=== PATIENT | female | born 1985 | race Caucasian/White ===

== ENCOUNTER 2016-10-07 16:54 | Emergency (ER) | payer MEDICAID ==
[2016-10-07 17:02] VITALS: BP 113/61; PULSE 75; RESP 16; TEMP 97.7; O2SAT 95
--- NOTE | 2016-10-07 17:14 | EDPHY ---
H & P Stated Complaint: L HEEL GOING NUMB X 4 DAYS Time Seen by Provider: 10/07/16 17:03 HPI/ROS: CHIEF COMPLAINT: Left heel paresthesias HISTORY OF PRESENT ILLNESS: Patient is a 31-year-old female who comes to the emergency department complaining of paresthesias in the lateral aspect of her left heel since she began a new job and his down her feet all day wearing tight boots. She has not had any injuries or falls. She has not had any signs of infection. She does not have diabetes. She does not have foot pain leg pain or back pain. No weakness. She is able to ambulate without difficulty. When she were softer shoes or boots the symptoms improve. REVIEW OF SYSTEMS: Constitutional: denies: chills, fever, recent illness, recent injury EENTM: denies: blurred vision, double vision, nose congestion Respiratory: denies: cough, shortness of breath Cardiac: denies: chest pain, irregular heart rate, lightheadedness, palpitations Gastrointestinal/Abdominal: denies: abdominal pain, diarrhea, nausea, vomiting, blood streaked stools Genitourinary: denies: dysuria, frequency, hematuria, pain Musculoskeletal: See HPI Skin: denies: lesions, rash, jaundice, bruising Neurological: denies: headache, numbness, paresthesia, tingling, dizziness, weakness Hematologic/Lymphatic: denies: blood clots, easy bleeding, easy bruising Immunologic/allergic: denies: HIV/AIDS, transplant EXAM: GENERAL: Well-appearing, well-nourished and in no acute distress. HEAD: Atraumatic, normocephalic. EYES: Pupils equal round and reactive to light, extraocular movements intact, sclera anicteric, conjunctiva are normal. ENT: TMs normal, nares patent, oropharynx clear without exudates. Moist mucous membranes. NECK: Normal range of motion, supple without lymphadenopathy or JVD. LUNGS: Breath sounds clear to auscultation bilaterally and equal. No wheezes rales or rhonchi. HEART: Regular rate and rhythm without murmurs, rubs or gallops. ABDOMEN: Soft, nontender, normoactive bowel sounds. No guarding, no rebound. No masses appreciated. BACK: No CVA tenderness, no spinal tenderness, step-offs or deformities EXTREMITIES: Normal range of motion, no pitting or edema. No clubbing or cyanosis. Mild paresthesias to left lateral heel, no objective findings. Normal sensation to light touch and pinprick. NEUROLOGICAL: Cranial nerves II through XII grossly intact. Normal speech, normal gait. 5/5 strength, normal movement in all extremities, normal sensation PSYCH: Normal mood, normal affect. SKIN: Warm, dry, normal turgor, no visible rashes or lesions. Source: Patient Exam Limitations: No limitations - Personal History LMP (Females 10-55): Extended Cycle BCP/Inj Current Tetanus/Diphtheria Vaccine: Yes - Medical/Surgical History Hx Asthma: No Hx Chronic Respiratory Disease: No Hx Diabetes: No Hx Cardiac Disease: No Hx Renal Disease: No Hx Cirrhosis: No Hx Alcoholism: No Hx HIV/AIDS: No Hx Splenectomy or Spleen Trauma: No Other PMH: LEFT EAR SURGERY, APPENDECTOMY, C-SECTIONS. Psychiatric illness-- PTSD, bipolar, anxiety - Family History Significant Family History: No pertinent family hx - Social History Smoking Status: Current every day smoker Alcohol Use: Sober Drug Use: None Constitutional: Initial Vital Signs Temperature (C) 36.5 C 10/07/16 16:59 Heart Rate 75 10/07/16 16:59 Respiratory Rate 16 10/07/16 16:59 Blood Pressure 113/61 10/07/16 16:59 O2 Sat (%) 95 10/07/16 16:59 O2 Delivery Mode Room Air Allergies/Adverse Reactions: cefazolin sodium [From Anc] Allergy (Verified 10/07/16 16:57) peanut Allergy (Verified 10/07/16 16:57) Home Medications: Medication Instructions Recorded Hydroxyzine Pamoate [Vistaril] 50 mg PO TID #30 capsule 08/10/16 busPIRone [Buspar (*)] 15 mg PO HS #10 tab 08/10/16 risperiDONE [RisperDAL] 1 mg PO DAILY #10 tab 08/10/16 Medical Decision Making ED Course/Re-evaluation: Patient has paresthesias that seem to be associated with tight boots and long hours on her feet. We discussed wearing more comfortable shoes and I will have her follow up with Orthopedics. There does not seem to be any signs consistent with back injury or spinal cord abnormality. This appears to more of a peripheral nerve compression. No visible infections or wounds or signs of fracture. Differential Diagnosis: Partial list of the Differential diagnosis considered include but were not limited to; peripheral neuropathy, cellulitis, plantar fasciitis and although unlikely based on the history and physical exam, I also considered multiple sclerosis, cauda equina. I discussed these differential diagnoses and the plan with the patient as well as the usual and expected course. The patient understands that the diagnosis is provisional and that in medicine we are not always correct and that further workup is often warranted. Usual and customary warnings were given. All of the patient's questions were answered. The patient was instructed to return to the emergency department should the symptoms at all worsen or return, otherwise to followup with the physician as we discussed. Departure - Departure Disposition: Home, Routine, Self-Care Clinical Impression: Paresthesia Condition: Fair Instructions: Paresthesia (ED) Referrals: NONE *PRIMARY CARE P,. [Primary Care Provider] - As per Instructions Luigi Womack MD [Doctor of Podiatric Medicine] - As per Instructions Stand Alone Forms: Work Excuse
== END 2016-10-07 17:24 | disposition home or self-care (01) ==
DX: R20.2 Paresthesia of skin (principal); F17.200 Nicotine dependence, unspecified, uncomplicated

== ENCOUNTER 2016-10-19 16:53 | Emergency (ER) | payer MEDICAID ==
[2016-10-19 17:23] VITALS: TEMP 97.9
[2016-10-19 18:07] LABS: COLOR AMBER; LEUKOCYTE ESTERASE,URINE NEGATIVE (NEGATIVE); NITRITE,URINE POSITIVE (NEGATIVE)
[2016-10-19 18:13] LABS: BACTERIA 2+ /hpf (NONE SEEN); MUCUS 3+ /lpf (NONE-1+); RBC,URINE 25-50 /hpf (0-3)
--- NOTE | 2016-10-19 19:20 | EDPHY ---
H & P Stated Complaint: Possible UTI HPI/ROS: HPI CHIEF COMPLAINT: Dysuria, nausea HISTORY OF PRESENT ILLNESS: this patient very pleasant 31-year-old female significant past medical history for PTSD, bipolar, borderline personality disorder, presents to the emergency room with 5 days of urinary frequency, dysuria, with nausea with episodes of nonbilious nonbloody vomiting. She also tells me that she had some bilateral flank pain. She is concerned she may have a urinary tract infection or kidney infection. She denies fever. She denies chest pain or shortness of breath. Past Medical History: PTSD, bipolar, borderline personality disorder Past Surgical History: denies significant surgical history except for appendectomy Social History: denies daily use of alcohol or drugs does endorse tobacco Family History: Noncontributory ROS REVIEW OF SYSTEMS: A comprehensive 10 point review of systems is otherwise negative aside from elements mentioned in the history of present illness. Exam Constitutional appears well, nontoxic, triage nursing summary reviewed, vital signs reviewed, awake/alert. Eyes normal conjunctivae and sclera, EOMI, PERRLA. HENT normal inspection, atraumatic, moist mucus membranes, no epistaxis, neck supple/ no meningismus, no raccoon eyes. Respiratory clear to auscultation bilaterally, normal breath sounds, no respiratory distress, no wheezing. Cardiovascular rate normal, regular rhythm, no murmur, no edema, distal pulses normal. Gastrointestinal soft, non-tender, no rebound, no guarding, normal bowel sounds, no distension, no pulsatile mass. Genitourinary no CVA tenderness. Musculoskeletal no midline vertebral tenderness, full range of motion, no calf swelling, no tenderness of extremities, no meningismus, good pulses, neurovascularly intact. Skin pink, warm, & dry, no rash, skin atraumatic. Neurologic awake, alert and oriented x 3, AAOx3, moves all 4 extremities equally, motor intact, sensory intact, CN II-XII intact, normal cerebellar, normal vision, normal speech. Psychiatric normal mood/affect. Heme/Lymph/Immune no lymphadenopathy. Differential Diagnosis: Includes but is not limited to in a particular order, UTI, cystitis, pyelonephritis, dehydration, electrolyte abnormality, doubt sepsis Medical Decision Making: this patient had an IV established, patient be medicated with IV fluids, nausea medicine and pain medicine. We will check a urinalysis test and blood work. Re-evaluation: 2009: re-evaluation at this time this patient is resting comfortably no acute distress no vomiting. Abdomen remained soft. Urinalysis reviewed UTI. She received Macrobid here in the emergency room. She is allergic to cephalosporins. I prescribed her [place] for pain control Zofran for nausea, peridium for spasms and Macrobid. She does understand return emergency room she develops worsening symptoms includes fever, vomiting, abdominal pain. Source: Patient - Personal History LMP (Females 10-55): Over 28 Days Ago Current Tetanus Diphtheria and Acellular Pertussis (TDAP): Yes - Medical/Surgical History Hx Asthma: No Hx Chronic Respiratory Disease: No Hx Diabetes: No Hx Cardiac Disease: No Hx Renal Disease: No Hx Cirrhosis: No Hx Alcoholism: No Hx HIV/AIDS: No Hx Splenectomy or Spleen Trauma: No Other PMH: LEFT EAR SURGERY, APPENDECTOMY, C-SECTIONS. Psychiatric illness-- PTSD, bipolar, anxiety - Social History Smoking Status: Current every day smoker Constitutional: Initial Vital Signs Temperature (C) 36.6 C 10/19/16 17:21 Heart Rate 73 10/19/16 17:21 Respiratory Rate 18 10/19/16 17:21 Blood Pressure 103/70 10/19/16 17:21 O2 Sat (%) 96 10/19/16 17:21 O2 Delivery Mode Room Air Allergies/Adverse Reactions: peanut Allergy (Severe, Verified 10/19/16 17:20) Anaphylaxis cefazolin sodium [From Ancef] Allergy (Intermediate, Verified 10/19/16 17:20) Hives Home Medications: Medication Instructions Recorded Hydroxyzine Pamoate [Vistaril] 50 mg PO TID #30 capsule 08/10/16 busPIRone [Buspar (*)] 15 mg PO HS #10 tab 08/10/16 risperiDONE [RisperDAL] 1 mg PO DAILY #10 tab 08/10/16 Hydrocodone/APAP 5/325 [[place] 1 - 2 tab PO Q4H PRN #7 tab 10/19/16 5/325] Nitrofurantoin Monohyd/M-Cryst 100 mg PO BID #14 capsule 10/19/16 [Macrobid 100 mg Capsule] Ondansetron HCl [Zofran] 4 mg PO Q4-6PRN PRN #10 tablet 10/19/16 Phenazopyridine HCl [Pyridium] 200 mg PO TID #15 tab 10/19/16 Prezazone 10/19/16 Medical Decision Making - Data Points Laboratory Results: Laboratory Results 10/19/16 19:29 10/19/16 19:29 10/19/16 10/19/16 19:29 17:20 WBC 8.69 10^3/uL (3.80-9.50) RBC 4.89 10^6/uL (4.18-5.33) Hgb 14.7 g/dL (12.6-16.3) Hct 42.3 % (38.0-47.0) MCV 86.5 fL (81.5-99.8) MCH 30.1 pg (27.9-34.1) MCHC 34.8 g/dL (32.4-36.7) RDW 12.1 % (11.5-15.2) Plt Count 346 10^3/uL (150-400) MPV 9.9 fL (8.7-11.7) Neut % (Auto) 58.5 % (39.3-74.2) Lymph % (Auto) 32.3 % (15.0-45.0) [place] % (Auto) 7.7 % (4.5-13.0) Eos % (Auto) 1.0 % (0.6-7.6) Baso % (Auto) 0.3 % (0.3-1.7) Nucleat RBC Rel Count 0.0 % (0.0-0.2) Absolute Neuts (auto) 5.07 10^3/uL (1.70-6.50) Absolute Lymphs (auto) 2.81 10^3/uL (1.00-3.00) Absolute Monos (auto) 0.67 10^3/uL (0.30-0.80) Absolute Eos (auto) 0.09 10^3/uL (0.03-0.40) Absolute Basos (auto) 0.03 10^3/uL (0.02-0.10) Absolute Nucleated RBC 0.00 10^3/uL (0-0.01) Immature Gran % 0.2 % (0.0-1.1) Immature Gran # 0.02 10^3/uL (0.00-0.10) Sodium 138 mEq/L (134-144) Potassium 4.6 mEq/L (3.5-5.2) Chloride 104 mEq/L (97-110) Carbon Dioxide 23 mEq/l (22-31) Anion Gap 11 mEq/L (8-16) BUN 19 mg/dL (7-23) Creatinine 0.7 mg/dL (0.6-1.0) Estimated GFR > 60 Glucose 85 mg/dL (70-100) Calcium 9.3 mg/dL (8.5-10.4) Total Bilirubin 0.9 mg/dL (0.1-1.4) Conjugated Bilirubin 0.3 mg/dL (0.0-0.5) Unconjugated Bilirubin 0.6 mg/dL (0.0-1.1) AST 27 IU/L (14-46) ALT 33 IU/L (9-52) Alkaline Phosphatase 117 IU/L (38-126) Total Protein 7.6 g/dL (6.3-8.2) Albumin 4.0 g/dL (3.5-5.0) Lipase 38.0 IU/L (23-300) Urine Color LAURY Urine Appearance MODERATELY TURBID Urine pH 5.0 (5.0-7.5) Ur Specific [place] 1.030 (1.002-1.030) Urine Protein 1+ H (NEGATIVE) Urine Ketones 1+ H (NEGATIVE) Urine Blood NEGATIVE (NEGATIVE) Urine Nitrate POSITIVE H (NEGATIVE) Urine Bilirubin NEGATIVE (NEGATIVE) Urine Urobilinogen NEGATIVE EU (0.2-1.0) Ur Leukocyte Esterase NEGATIVE (NEGATIVE) Urine RBC 25-50 H /hpf (0-3) Urine WBC 1-3 /hpf (0-3) Ur Epithelial Cells TRACE /lpf (NONE-1+) Urine Bacteria 2+ H /hpf (NONE SEEN) Urine Mucus 3+ H /lpf (NONE-1+) Ur Culture Indicated? INDICATED H (NI) Urine Glucose NEGATIVE (NEGATIVE) Urine Test NEGATIVE Medications Given: Discontinued Medications Hydromorphone HCl (Dilaudid) 0.5 mg IVP EDNOW ONE Stop: 10/19/16 19:24 Last Admin: 10/19/16 19:40 Dose: 0.5 mg Sodium Chloride (Ns) 2,000 mls @ 0 mls/hr IV ONCE ONE PRN Reason: Wide Open Stop: 10/19/16 19:24 Last Admin: 10/19/16 19:30 Dose: 2,000 mls Nitrofurantoin Macrocrystals (Macrobid) 100 mg PO EDNOW ONE PRN Reason: Protocol Stop: 10/19/16 19:28 Last Admin: 10/19/16 19:40 Dose: 100 mg Ondansetron HCl (Zofran) 4 mg IVP EDNOW ONE Stop: 10/19/16 19:24 Last Admin: 10/19/16 19:38 Dose: 4 mg Departure - Departure Disposition: Home, Routine, Self-Care Clinical Impression: UTI (urinary tract infection) Qualifiers: Urinary tract infection type: acute cystitis Hematuria presence: with hematuria Qualifier Code: (N30.01) Acute cystitis with hematuria Condition: Good Instructions: Urinary Tract Infection in Women (ED) Additional Instructions: 1. Drink lots of fluids stay well-hydrated. 2. return emergency room if develops worsening symptoms questions or concerns includes worsening back pain, vomiting, abdominal pain, fever. 3. Take antibiotic as prescribed. Referrals: NONE *PRIMARY CARE P,. [Primary Care Provider] - As per Instructions Prescriptions: Nitrofurantoin Monohyd/M-Cryst [Macrobid 100 mg Capsule] 100 mg PO BID #14 capsule Hydrocodone/APAP 5/325 [[place] 5/325] 1 - 2 tab PO Q4H PRN #7 tab PRN Reason: Pain, Moderate Phenazopyridine HCl [Pyridium] 200 mg PO TID #15 tab Ondansetron HCl [Zofran] 4 mg PO Q4-6PRN PRN #10 tablet PRN Reason: Nausea/Vomiting, Use 1st
[2016-10-19] MEDS ORDERED: HYDROmorphONE/DILAUDID 1 MG/ML SYR IVP ONE (19:23)
[2016-10-19] MEDS ORDERED: NS 2,000 ML IV ONE (19:23)
[2016-10-19] MEDS ORDERED: ONDANSETRON 4 MG/2 ML VIAL IVP ONE (19:23)
[2016-10-19] MEDS ORDERED: NITROFURANTOIN MACROBID 100 MG CAP PO ONE (19:27)
[2016-10-19 19:37] LABS: % IMMATURE GRANULYOCYTES 0.2 % (0.0-1.1); ABSOLUTE IMMATURE GRANULOCYTES 0.02 10^3/uL (0.00-0.10); ADD DIFF? NO; ADD MORPH? NO; ADD SCAN? NO; ATYPICAL LYMPHOCYTE FLAG 10 (0-99); FRAGMENT RBC FLAG 0 (0-99); HEMATOCRIT 42.3 % (38.0-47.0); HEMOGLOBIN 14.7 g/dL (12.6-16.3); LEFT SHIFT FLG 0 (0-99); LIPEMIA HEMOLYSIS FLAG 90 (0-99); MEAN CELL HEMOGLOBIN 30.1 pg (27.9-34.1); MEAN CELL HEMOGLOBIN CONCENTR. 34.8 g/dL (32.4-36.7); MEAN CELL VOLUME 86.5 fL (81.5-99.8); MEAN PLATELET VOLUME 9.9 fL (8.7-11.7); PLATELET CLUMPS FLAG 0 (0-99); PLATELET COUNT 346 10^3/uL (150-400); RED BLOOD CELL COUNT 4.89 10^6/uL (4.18-5.33); RED CELL DISTRIBUTION WIDTH 12.1 % (11.5-15.2)
[2016-10-19 19:52] LABS: ALANINE AMINOTRANSFERASE 33 IU/L (9-52); ALKALINE PHOSPHATASE 117 IU/L (38-126); ANION GAP 11 mEq/L (8-16); ASPARTATE AMINOTRANSFERASE 27 IU/L (14-46); BILIRUBIN,TOTAL 0.9 mg/dL (0.1-1.4); BILIRUBIN-CONJUGATED 0.3 mg/dL (0.0-0.5); BILIRUBIN-UNCONJUGATED 0.6 mg/dL (0.0-1.1); CALCIUM 9.3 mg/dL (8.5-10.4); CARBON DIOXIDE 23 mEq/l (22-31); CHLORIDE 104 mEq/L (97-110); CREATININE 0.7 mg/dL (0.6-1.0); GLOMERULAR FILTRATION RATE > 60; GLUCOSE 85 mg/dL (70-100); POTASSIUM 4.6 mEq/L (3.5-5.2); SODIUM 138 mEq/L (134-144); TOTAL PROTEIN 7.6 g/dL (6.3-8.2)
[2016-10-19] MEDS ORDERED: PHENAZOPYRIDINE HCL 200 MG TAB ONE (20:47)
[2016-10-19] MEDS ORDERED: HYDROCOD/APAP 5/325 PREPACK#6 BTL TAKEHOME ONE ×2 (20:47→20:49)
[2016-10-19] MEDS ORDERED: PHENAZOPYRIDINE HCL 200 MG TAB PO ONE (20:49)
[2016-10-19 20:52] VITALS: BP 119/79; PULSE 79; RESP 16; O2SAT 94
== END 2016-10-19 20:51 | disposition home or self-care (01) ==
DX: N30.01 Acute cystitis with hematuria (principal); F17.200 Nicotine dependence, unspecified, uncomplicated; B96.89 Other specified bacterial agents as the cause of diseases classified elsewhere; Z91.010 Allergy to peanuts
CPT/HCPCS: 96374; J1170; J2405

== ENCOUNTER 2016-10-26 16:21 | Emergency (ER) | payer MEDICAID ==
--- NOTE | 2016-10-26 16:49 | EDPHY ---
H & P Stated Complaint: UTI? was here last wk for same thing - Personal History LMP (Females 10-55): Irregular Current Tetanus/Diphtheria Vaccine: Unsure Current Tetanus Diphtheria and Acellular Pertussis (TDAP): Unsure - Medical/Surgical History Hx Asthma: No Hx Chronic Respiratory Disease: No Hx Diabetes: No Hx Cardiac Disease: No Hx Renal Disease: No Hx Cirrhosis: No Hx Alcoholism: No Hx HIV/AIDS: No Hx Splenectomy or Spleen Trauma: No Other PMH: LEFT EAR SURGERY, APPENDECTOMY, C-SECTIONS. Psychiatric illness-- PTSD, bipolar, anxiety - Social History Smoking Status: Current every day smoker Time Seen by Provider: 10/26/16 16:47 HPI/ROS: CHIEF COMPLAINT: I still feel sick HISTORY OF PRESENT ILLNESS: 31-year-old female seen emergency department 6 days ago for complaints of urinary tract infection, started on nitrofurantoin at that time as she has cephalosporin allergy, in the ER complaining of new lower abdominal pain, flu-like symptoms, rhinorrhea, concerned that her urinary tract infection is not resolving. She also endorses nausea, subjective fever. Denies : cough, dyspnea, chest pain Back or flank pain, dysuria, hematuria, increased frequency, vomiting, melena, hematochezia, diarrhea, bowel movement abnormality. Last menstrual period was August. Currently on Depo-Provera. No dyspareunia REVIEW OF SYSTEMS: A ten point review of systems was performed and is negative with the exception of the items mentioned in the HPI PAST MEDICAL & SURGICAL HISTORY: appendectomy. Bipolar disorder. PTSD. Borderline personality disorder. SOCIAL HISTORY:daily tobacco PHYSICAL EXAM (Prior to examination, patient consented to physical exam, hands were washed and my usual and customary physical exam procedures followed) 1) GENERAL: Well-developed, well-nourished, alert and oriented. Appears nontoxic. 2) HEAD: Normocephalic, atraumatic 3) HEENT: Pupils equal, round, reactive to light bilaterally. Sclera anicteric. Positive rhinorrhea. No tonsillar enlargement. No tonsillar exudate. Bilateral ears clear with no signs of otitis media or otitis externa. 4) NECK: Full range of motion, no meningeal signs. No adenopathy 5) LUNGS: Clear auscultation bilaterally, no wheezes, no rhonchi, no retractions. 6) HEART: Regular rate and rhythm, no murmur, no heave, no gallop. 7) ABDOMEN: No guarding, mild tender to palpations suprapubic region, negative McBurney's, negative Mackenzie's, negative Rovsing's, negative peritoneal sign, 8) MUSCULOSKELETAL: Moving all extremities, no focal areas of tenderness, no obvious trauma. No peripheral edema or discoloration. 9) BACK: No CVA tenderness, no midline vertebral tenderness, no fluctuance, no step-off, no obvious trauma, no visual or palpable abnormality. 10) SKIN: No rash, no petechiae. 11) Psychiatric: Patient is oriented X 3, there is no agitation. DIFFERENTIAL DIAGNOSIS: in no particular include but limited to cystitis, pyelonephritis, ovarian cyst, ovarian torsion, ectopic (Dedrick,Gatito Licona) Constitutional: Initial Vital Signs Temperature (C) 36.8 C 10/26/16 16:22 Heart Rate 76 10/26/16 16:22 Respiratory Rate 16 10/26/16 16:22 Blood Pressure 117/72 10/26/16 16:22 O2 Sat (%) 93 10/26/16 16:22 O2 Delivery Mode Room Air Allergies/Adverse Reactions: peanut Allergy (Severe, Verified 10/19/16 17:20) Anaphylaxis cefazolin sodium [From Ancef] Allergy (Intermediate, Verified 10/19/16 17:20) Hives Home Medications: Medication Instructions Recorded Hydroxyzine Pamoate [Vistaril] 50 mg PO TID #30 capsule 08/10/16 busPIRone [Buspar (*)] 15 mg PO HS #10 tab 08/10/16 risperiDONE [RisperDAL] 1 mg PO DAILY #10 tab 08/10/16 Hydrocodone/APAP 5/325 [[place] 1 - 2 tab PO Q4H PRN #7 tab 10/19/16 5/325] Nitrofurantoin Monohyd/M-Cryst 100 mg PO BID #14 capsule 10/19/16 [Macrobid 100 mg Capsule] Ondansetron HCl [Zofran] 4 mg PO Q4-6PRN PRN #10 tablet 10/19/16 Phenazopyridine HCl [Pyridium] 200 mg PO TID #15 tab 10/19/16 Prezazone 10/19/16 Medical Decision Making - Diagnostics Imaging: Transabdominal and Transvaginal Pelvic Ultrasound History: 31-year-old with left lower quadrant pain, LMP August 23, 2016, Depo shot. Comparison: None available. Findings: Transabdominal: The uterus measures 7.6 x 3.5 x 5.5 cm. The bladder is poorly distended. Transvaginal: No fibroids are present. The endometrium is homogeneous and measures 4 mm. The left ovary measures 2.8 x 1.6 x 1.3 cm. The right ovary measures 2.7 x 1.2 x 1.2 cm. No adnexal masses are identified. Normal arterial blood flow is documented to both ovaries by Doppler ultrasound. There is trace free fluid. Impression: Normal pelvic ultrasound. Findings discussed with Gatito Tse 10/26/2016 at 18:10. Dictated By: Paul Rosas MD Images reviewed by myself (Gatito Tse) ED Course/Re-evaluation: 4:48 p.m.: Old medical records reviewed including ER visit from 6 days ago with urine culture positive for E coli pansensitive, including nitrofurantoin, with exception of ampicillin resistance. Plan will be check urine, blood, pelvic ultrasound 7:05 p.m.: Re-evaluation. Discussed her laboratory and diagnostic results. Influenza is negative. Her ultrasound shows normal ovarian pathology. Doubt ovarian cyst. Doubt ovarian torsion. Doubt ectopic . She does note upper respiratory infection like symptoms including rhinorrhea. Her lungs are clear bilaterally she is maintain normal saturations. I do not think that chest imaging currently indicated. We discussed possibility of viral URI. Do not think that antibiotics specifically for URI are indicated. Doubt pneumonia. Doubt acute surgical abdominal pathology. We discussed usual and customary discharge precautions instructions and importance of returning. She feels comfortable being discharged. Discussed case with Dr. Sue Mejía in the ER (Gatito Tse) Other Provider: The patient was evaluated and managed by the Physician Printer Repair Technician/ Nurse Practitioner. I discussed the patient's presentation and course with the midlevel provider with them and agree with the evaluation. My co-signature indicates that I have reviewed this chart and I agree with the findings and plan of care as documented. I am the secondary supervising physician. (Sue Mejía) - Data Points Laboratory Results: Laboratory Results 10/26/16 17:15 10/26/16 18:22 10/26/16 10/26/16 10/26/16 18:22 17:15 17:05 WBC 8.54 10^3/uL (3.80-9.50) RBC 5.18 10^6/uL (4.18-5.33) Hgb 15.2 g/dL (12.6-16.3) Hct 44.7 % (38.0-47.0) MCV 86.3 fL (81.5-99.8) MCH 29.3 pg (27.9-34.1) MCHC 34.0 g/dL (32.4-36.7) RDW 12.4 % (11.5-15.2) Plt Count 329 10^3/uL (150-400) MPV 10.2 fL (8.7-11.7) Neut % (Auto) 67.2 % (39.3-74.2) Lymph % (Auto) 26.0 % (15.0-45.0) [place] % (Auto) 5.7 % (4.5-13.0) Eos % (Auto) 0.5 L % (0.6-7.6) Baso % (Auto) 0.5 % (0.3-1.7) Nucleat RBC Rel Count 0.0 % (0.0-0.2) Absolute Neuts (auto) 5.74 10^3/uL (1.70-6.50) Absolute Lymphs (auto) 2.22 10^3/uL (1.00-3.00) Absolute Monos (auto) 0.49 10^3/uL (0.30-0.80) Absolute Eos (auto) 0.04 10^3/uL (0.03-0.40) Absolute Basos (auto) 0.04 10^3/uL (0.02-0.10) Absolute Nucleated RBC 0.00 10^3/uL (0-0.01) Immature Gran % 0.1 % (0.0-1.1) Immature Gran # 0.01 10^3/uL (0.00-0.10) Sodium 140 mEq/L REJ (134-144) Potassium 4.1 mEq/L Not Reported (3.5-5.2) Chloride 111 H mEq/L Not Reported (97-110) Carbon Dioxide 20 L mEq/l Not Reported (22-31) Anion Gap 9 mEq/L Not Reported (8-16) BUN 14 mg/dL Not Reported (7-23) Creatinine 0.7 mg/dL Not Reported (0.6-1.0) Estimated GFR > 60 Not Reported Glucose 93 mg/dL Not Reported (70-100) Calcium 9.1 mg/dL Not Reported (8.5-10.4) Total Bilirubin 0.6 mg/dL Not Reported (0.1-1.4) Conjugated Bilirubin 0.5 mg/dL Not Reported (0.0-0.5) Unconjugated Bilirubin 0.1 mg/dL Not Reported (0.0-1.1) AST 21 IU/L Not Reported (14-46) ALT 29 IU/L Not Reported (9-52) Alkaline Phosphatase 91 IU/L Not Reported (38-126) Total Protein 6.6 g/dL REJ (6.3-8.2) Albumin 3.8 g/dL Not Reported (3.5-5.0) Lipase 73.0 IU/L REJ (23-300) Beta HCG, Qual NEGATIVE Urine Color YELLOW Urine Appearance HAZY Urine pH 5.0 (5.0-7.5) Ur Specific [place] 1.021 (1.002-1.030) Urine Protein NEGATIVE (NEGATIVE) Urine Ketones NEGATIVE (NEGATIVE) Urine Blood NEGATIVE (NEGATIVE) Urine Nitrate NEGATIVE (NEGATIVE) Urine Bilirubin NEGATIVE (NEGATIVE) Urine Urobilinogen NEGATIVE EU (0.2-1.0) Ur Leukocyte Esterase NEGATIVE (NEGATIVE) Urine RBC 1-3 /hpf (0-3) Urine WBC 1-3 /hpf (0-3) Ur Epithelial Cells 1+ /lpf (NONE-1+) Urine Mucus TRACE /lpf (NONE-1+) Urine Glucose NEGATIVE (NEGATIVE) Influenza Typ A,B (DFA) NEGATIVE FOR FLU (NEGATIVE) Medications Given: Discontinued Medications Sodium Chloride (Ns) 1,000 mls @ 0 mls/hr IV ONCE ONE PRN Reason: Wide Open Stop: 10/26/16 17:04 Last Admin: 10/26/16 17:25 Dose: 1,000 mls Ketorolac Tromethamine (Toradol) 30 mg IVP EDNOW ONE Stop: 10/26/16 17:04 Last Admin: 10/26/16 17:24 Dose: 30 mg Departure - Departure Disposition: Home, Routine, Self-Care Clinical Impression: Resolving urinary tract infection, Upper respiratory infection Condition: Good Instructions: Upper Respiratory Infection (ED) Additional Instructions: Return to the emergency department immediately for change in breathing habits, change in voice, change in swallowing habits, change in mental status, or any other symptoms that concern you. Referrals: [facility] [Outside] - 1-2 days without fail
[2016-10-26] MEDS ORDERED: NS 1,000 ML IV ONE (17:03)
[2016-10-26] MEDS ORDERED: KETOROLAC 30 MG/1 ML SDV IVP ONE (17:03)
[2016-10-26 17:19] LABS: COLOR YELLOW; LEUKOCYTE ESTERASE,URINE NEGATIVE (NEGATIVE); NITRITE,URINE NEGATIVE (NEGATIVE)
[2016-10-26 17:21] LABS: MUCUS TRACE /lpf (NONE-1+)
[2016-10-26 17:34] LABS: % IMMATURE GRANULYOCYTES 0.1 % (0.0-1.1); ABSOLUTE IMMATURE GRANULOCYTES 0.01 10^3/uL (0.00-0.10); ADD DIFF? NO; ADD MORPH? NO; ADD SCAN? NO; ATYPICAL LYMPHOCYTE FLAG 10 (0-99); FRAGMENT RBC FLAG 0 (0-99); HEMATOCRIT 44.7 % (38.0-47.0); HEMOGLOBIN 15.2 g/dL (12.6-16.3); LEFT SHIFT FLG 10 (0-99); LIPEMIA HEMOLYSIS FLAG 90 (0-99); MEAN CELL HEMOGLOBIN 29.3 pg (27.9-34.1); MEAN CELL VOLUME 86.3 fL (81.5-99.8); MEAN PLATELET VOLUME 10.2 fL (8.7-11.7); PLATELET CLUMPS FLAG 10 (0-99); PLATELET COUNT 329 10^3/uL (150-400); RED BLOOD CELL COUNT 5.18 10^6/uL (4.18-5.33); RED CELL DISTRIBUTION WIDTH 12.4 % (11.5-15.2)
--- NOTE | 2016-10-26 18:12 | US ---
Transabdominal and Transvaginal Pelvic Ultrasound History: 31-year-old with left lower quadrant pain, LMP August 23, 2016, Depo shot. Comparison: None available. Findings: Transabdominal: The uterus measures 7.6 x 3.5 x 5.5 cm. The bladder is poorly distended. Transvaginal: No fibroids are present. The endometrium is homogeneous and measures 4 mm. The left ova ry measures 2.8 x 1.6 x 1.3 cm. The right ovary measures 2.7 x 1.2 x 1.2 cm. No adnexal masses are i dentified. Normal arterial blood flow is documented to both ovaries by Doppler ultrasound. There is t race free fluid. Impression: Normal pelvic ultrasound. Findings discussed with Gatito Tse 10/26/2016 at 18:10.
[2016-10-26 18:39] VITALS: BP 120/76; PULSE 67; RESP 18; TEMP 98.6; O2SAT 100
[2016-10-26 18:55] LABS: ALANINE AMINOTRANSFERASE 29 IU/L (9-52); ALBUMIN 3.8 g/dL (3.5-5.0); ALKALINE PHOSPHATASE 91 IU/L (38-126); ANION GAP 9 mEq/L (8-16); ASPARTATE AMINOTRANSFERASE 21 IU/L (14-46); BILIRUBIN,TOTAL 0.6 mg/dL (0.1-1.4); BILIRUBIN-CONJUGATED 0.5 mg/dL (0.0-0.5); BILIRUBIN-UNCONJUGATED 0.1 mg/dL (0.0-1.1); CALCIUM 9.1 mg/dL (8.5-10.4); CARBON DIOXIDE 20 mEq/l (22-31); CHLORIDE 111 mEq/L (97-110); CREATININE 0.7 mg/dL (0.6-1.0); GLOMERULAR FILTRATION RATE > 60; GLUCOSE 93 mg/dL (70-100); POTASSIUM 4.1 mEq/L (3.5-5.2); SODIUM 140 mEq/L (134-144); TOTAL PROTEIN 6.6 g/dL (6.3-8.2)
== END 2016-10-26 19:20 | disposition home or self-care (01) ==
DX: N39.0 Urinary tract infection, site not specified (principal); J06.9 Acute upper respiratory infection, unspecified; F17.200 Nicotine dependence, unspecified, uncomplicated; Z90.49 Acquired absence of other specified parts of digestive tract; Z91.010 Allergy to peanuts
CPT/HCPCS: 96374; J1885

== ENCOUNTER 2016-11-24 12:14 | Emergency (ER) | payer MEDICAID ==
[2016-11-24 12:19] VITALS: RESP 15
--- NOTE | 2016-11-24 13:06 | EDPHY ---
H & P Stated Complaint: Withdrawling from muscle relaxant. Left hip pain. Time Seen by Provider: 11/24/16 12:52 HPI/ROS: CHIEF COMPLAINT: Left hip pain HISTORY OF PRESENT ILLNESS: Patient is a 31-year-old female who comes to the emergency department complaining of left hip pain. It does not hurt her at rest but hurts when she flexes her hip. She thinks that it began while standing at work. She got a new job where she stands all day long. She has not had a fever. She is not an IV drug abuser. It does not hurt with passive range of motion only active. She denies any falls or recent trauma. She states that it was initially feeling better with ice and rest but that she also has tapered off Suboxone over the last week in her hip pain is gradually worsened. She has already tried Flexeril and Skelaxin and ibuprofen without relief. She is here asking for tramadol. REVIEW OF SYSTEMS: Constitutional: denies: chills, fever, recent illness, recent injury EENTM: denies: blurred vision, double vision, nose congestion Respiratory: denies: cough, shortness of breath Cardiac: denies: chest pain, irregular heart rate, lightheadedness, palpitations Gastrointestinal/Abdominal: denies: abdominal pain, diarrhea, nausea, vomiting, blood streaked stools Genitourinary: denies: dysuria, frequency, hematuria, pain Musculoskeletal: See HPI Skin: denies: lesions, rash, jaundice, bruising Neurological: denies: headache, numbness, paresthesia, tingling, dizziness, weakness Hematologic/Lymphatic: denies: blood clots, easy bleeding, easy bruising Immunologic/allergic: denies: HIV/AIDS, transplant EXAM: GENERAL: Well-appearing, well-nourished and in no acute distress. HEAD: Atraumatic, normocephalic. EYES: Pupils equal round and reactive to light, extraocular movements intact, sclera anicteric, conjunctiva are normal. ENT: TMs normal, nares patent, oropharynx clear without exudates. Moist mucous membranes. NECK: Normal range of motion, supple without lymphadenopathy or JVD. LUNGS: Breath sounds clear to auscultation bilaterally and equal. No wheezes rales or rhonchi. HEART: Regular rate and rhythm without murmurs, rubs or gallops. ABDOMEN: Soft, nontender, normoactive bowel sounds. No guarding, no rebound. No masses appreciated. BACK: No CVA tenderness, no spinal tenderness, step-offs or deformities EXTREMITIES: Normal passive range of motion, pain with hip flexion or medial crossing. No swelling or erythema. No warmth. NEUROLOGICAL: Cranial nerves II through XII grossly intact. Normal speech, normal gait. 5/5 strength, normal movement in all extremities, normal sensation PSYCH: Normal mood, normal affect. SKIN: Warm, dry, normal turgor, no visible rashes or lesions. Source: Patient, Family - Personal History LMP (Females 10-55): Extended Cycle BCP/Inj Current Tetanus/Diphtheria Vaccine: Yes Current Tetanus Diphtheria and Acellular Pertussis (TDAP): Yes - Medical/Surgical History Hx Asthma: No Hx Chronic Respiratory Disease: No Hx Diabetes: No Hx Cardiac Disease: No Hx Renal Disease: No Hx Cirrhosis: No Hx Alcoholism: No Hx HIV/AIDS: No Hx Splenectomy or Spleen Trauma: No Other PMH: LEFT EAR SURGERY, APPENDECTOMY, C-SECTIONS. Psychiatric illness-- PTSD, bipolar, anxiety - Family History Significant Family History: No pertinent family hx - Social History Smoking Status: Current every day smoker Alcohol Use: Sober Drug Use: Other Constitutional: Initial Vital Signs Temperature (C) 36.4 C 11/24/16 12:16 Heart Rate 91 11/24/16 12:16 Respiratory Rate 15 11/24/16 12:16 Blood Pressure 115/80 11/24/16 12:16 O2 Sat (%) 95 11/24/16 12:16 O2 Delivery Mode Room Air Allergies/Adverse Reactions: peanut Allergy (Severe, Verified 11/24/16 12:16) Anaphylaxis cefazolin sodium [From Ancef] Allergy (Intermediate, Verified 11/24/16 12:16) Hives Home Medications: Medication Instructions Recorded Hydroxyzine Pamoate [Vistaril] 50 mg PO TID #30 capsule 08/10/16 busPIRone [Buspar (*)] 15 mg PO HS #10 tab 08/10/16 risperiDONE [RisperDAL] 1 mg PO DAILY #10 tab 08/10/16 Hydrocodone/APAP 5/325 [Continental 1 - 2 tab PO Q4H PRN #7 tab 10/19/16 5/325] Nitrofurantoin Monohyd/M-Cryst 100 mg PO BID #14 capsule 10/19/16 [Macrobid 100 mg Capsule] Ondansetron HCl [Zofran] 4 mg PO Q4-6PRN PRN #10 tablet 10/19/16 Phenazopyridine HCl [Pyridium] 200 mg PO TID #15 tab 10/19/16 Prezazone 10/19/16 Lidocaine 5% [Lidoderm 5% Patch 1 ea TD DAILY #7 patch 11/24/16 (*)] Medical Decision Making ED Course/Re-evaluation: The patient has no concerning signs for infection. Her pain is very musculoskeletal. It hurts with active but not passive range of motion. I do not think that is the bone or joint or bursitis. Do not suspect a abscess. I will treat her with a lighted derm patch and referral to Orthopedics for physical therapy. She understands and agrees with this plan. She is disappointed that she is not going to receive tramadol but understands that it is a partial opioid and does not want to have any addiction to opiates. Differential Diagnosis: Partial list of the Differential diagnosis considered include but were not limited to; muscle strain, bursitis, tendonitis, and although unlikely based on the history and physical exam, I also considered psoas abscess, joint infection, fracture. I discussed these differential diagnoses and the plan with the patient as well as the usual and expected course. The patient understands that the diagnosis is provisional and that in medicine we are not always correct and that further workup is often warranted. Usual and customary warnings were given. All of the patient's questions were answered. The patient was instructed to return to the emergency department should the symptoms at all worsen or return, otherwise to followup with the physician as we discussed. Departure - Departure Disposition: Home, Routine, Self-Care Clinical Impression: Left hip pain Condition: Fair Instructions: Muscle Strain (ED) Referrals: Grace Sales DO [Doctor of Osteopathy] - As per Instructions Kaelyn Garrido MD [Medical Doctor] - As per Instructions Prescriptions: Lidocaine 5% [Lidoderm 5% Patch (*)] 1 ea TD DAILY #7 patch
[2016-11-24 13:55] VITALS: BP 116/76; PULSE 65; TEMP 97.9; O2SAT 96
== END 2016-11-24 13:55 | disposition home or self-care (01) ==
DX: M25.552 Pain in left hip (principal); F17.200 Nicotine dependence, unspecified, uncomplicated; Z91.010 Allergy to peanuts